=== PATIENT | male | born 1985 | race Caucasian/White ===

== ENCOUNTER 2023-10-31 13:58 | Emergency (ER) | payer OTHER, SELFPAY ==
[2023-10-31 14:08] VITALS: BP 130/77; PULSE 91; RESP 16; TEMP 36.4; O2SAT 100
--- NOTE | 2023-10-31 14:12 | ED.EYEPROB ---
HPI - Eye Problem General Chief complaint: Eye Problems Stated complaint: Eye Problems Time Seen by Provider: 10/31/23 14:12 Source: patient, RN notes reviewed and old records reviewed Mode of arrival: ambulatory Limitations: no limitations History of Present Illness HPI Narrative: 38year old male accompanied by with complaints of cutting metal conduit today around 1100 and he states a small piece flew up and he thinks it is in his eye or scratched his eye. He reports that his eye was watering a lot while waiting for to come get him. Patient reports that it feels like something in his left upper eyelid. Patient reports that he has no sharp pain to his left eye and no changes in vision. Patient reports that he didn't have safety glasses on at the time of incident.Patient reports that he feels like something in upper left eye under eyelid when he blinks. chief complaint: foreign body (thinks he has a piece of metal in eye) Onset (ago): day(s) (today around 1100.) Eye Symptoms: foreign body sensation and other (irritation) Severity scale (1-10): 3 Treatments Prior to Arrival: none Related Data Allergies Allergy/AdvReac Type Severity Reaction Status Date / Time No Known Allergies Allergy Verified 10/31/23 14:30 Review of Systems Review of Systems: CONSTITUTIONAL: Denies fever, chills, or sweats EYES: Denies visual changes. Reports foreign body sensation left upper eye under eyelid at 2' 0 'clock position,irritation, no discharge some eye watering, unable to fully open left eye when first arrived due to discomfort. ENT: Denies rhinorrhea, congestion, sore throat, or otalgia. CARDIOVASCULAR: Denies chest pain, palpitations, or edema. RESPIRATORY: Denies cough or dyspnea. SKIN: Denies rash or itching. NEUROLOGIC: Denies headache All systems reviewed & are unremarkable except as noted in HPI and below [facility] Social History Social History (Updated 10/31/23 @ 16:25 by Letha Butt NP) Smoking status: Never smoker Alcohol intake: current Alcohol use details: social Substance use type: does not use Living arrangements: with family Gender identity (if verbalized by the patient): Male Comments At time of signature, agree with nursing past medical, surgical, social and family history. There is no relevant family history pertinent to the presenting complaint Exam Narrative: GENERAL: Well-appearing, well-nourished, and in no acute distress. HEAD: Normocephalic, atraumatic. EYES: PERRLA and EOMI. Upper and lower eyelids unremarkable. No periorbital cellulitis noted. sclera of left eye mildly red, reports irritation of left eye at upper eye under lateral aspect upper eyelid. Mo visual changes or sharp pain to eye. ENT: Nares clear, no rhinorrhea or epistaxis. Mucous membranes moist. NECK: Supple. no lymphadenopathy CHEST: Clear to auscultation. No respiratory distress.SAO2 100% on room air HEART: Regular rate and rhythm. No murmur heard. Normal peripheral pulses. SKIN: Warm, dry, no rash. NEURO: No focal deficits. Alert and oriented x3. Course Course Emergency Course: Patient is aware of diagnosis, understands and agrees to treatment plan. Anticipatory guidance given. Patient agrees to follow-up as directed and is aware of reasons to seek care at the emergency department. Portions of this record may have been created with voice recognition software Level of Care: Express Care Visit Vital Signs Vital signs: Vital Signs Temperature 36.4 C L 10/31/23 14:08 Pulse Rate 91 10/31/23 14:08 Respiratory Rate 16 10/31/23 14:08 Blood Pressure 130/77 10/31/23 14:08 Pulse Oximetry 100 10/31/23 14:08 Temperature 36.4 C L 10/31/23 14:08 Pulse Rate 91 10/31/23 14:08 Respiratory Rate 16 10/31/23 14:08 Blood Pressure 130/77 10/31/23 14:08 Pulse Oximetry 100 10/31/23 14:08 Reviewed Procedures FB Removal Eye Foreign Body #1: Foreign Body Removal Date: 10/31/23
== END 2023-10-31 14:47 | disposition home or self-care (01) ==
PROVIDERS: Emergency Provider Registered Nurse; PCP Family Medicine
DX: S05.02XA Injury of conjunctiva and corneal abrasion without foreign body, left eye, initial encounter (principal); W44.D9XA Other magnetic metal objects entering into or through a natural orifice, initial encounter
CPT/HCPCS: 99213; A9270; G0463